=== PATIENT | male | born 1985 | race Caucasian/White ===

== ENCOUNTER 2016-06-06 01:35 | Emergency (ER) | payer BC ==
[2016-06-06] MEDS ORDERED: predniSONE TAB* 20 MG PO ONE (01:48)
[2016-06-06] MEDS ORDERED: Albuterol/Ipratropium NEB.SOL* Albuterol 2.5 MG/Ipratropium 0.5 MG 3 ML INH ONE (01:48)
--- NOTE | 2016-06-06 02:40 | ED ---
Travis Sommer SooYoung, scribed for Diallo Magallanes MD on 06/06/16 at 0149 . Asthma - HPI Summary HPI Summary: A 30 y/o M presents to ED after an asthma attack onset 29. He took Benedryl and used his Albuterol inhaler which provided mild relief. He notes that he had a mild asthma attack approx one month ago, but hasn't had a bad one in years. Pt is a former smoker, quit "7-10 days ago." - History of Current Complaint Chief Complaint: EDAsthma Stated Complaint: DIFF BREATHING Time Seen by Provider: 06/06/16 01:48 Hx Obtained From: Patient Onset/Duration: Still Present Current Severity: Mild Pain Intensity: 2 Pain Scale Used: 0-10 Numeric Alleviating Symptoms: Inhalers/Nebulizers - mild relief - Allergy/Home Medications Allergies/Adverse Reactions: Allergies Allergy/AdvReac Type Severity Reaction Status Date / Time Shellfish Allergy Allergy Severe Anaphylatic Verified 10/17/13 21:30 Shock PMH/Surg Hx/FS Hx/Imm Hx Previously Healthy: Yes Endocrine/Hematology History: Denies: Hx Diabetes, Hx Thyroid Disease Cardiovascular History: Denies: Hx Hypertension Respiratory History: Reports: Hx Asthma Denies: Hx Chronic Obstructive Pulmonary Disease (COPD) GI History: Denies: Hx Ulcer - Surgical History Surgery Procedure, Year, and Place: knee surgery Infectious Disease History: No Infectious Disease History: Denies: Hx Hepatitis, Hx Human Immunodeficiency Virus (HIV), Traveled Outside the [place] in Last 30 Days - Family History Known Family History: Positive: Cardiac Disease, Hypertension, Diabetes - Social History Occupation: Unemployed - OTHER Lives: Alone Alcohol Use: Occasionally Hx Substance Use: No Substance Use Type: Reports: None Hx Tobacco Use: Yes Smoking Status (MU): Former Smoker Review of Systems Negative: Fever Positive: Shortness Of Breath, Other - pos: asthma attack All Other Systems Reviewed And Are Negative: Yes Physical Exam Triage Information Reviewed: Yes Vital Signs On Initial Exam: Initial Vitals Temp Pulse Resp BP Pulse Ox 97 F 90 16 135/84 99 06/06/16 01:40 06/06/16 01:40 06/06/16 01:40 06/06/16 01:40 06/06/16 01:40 Vital Signs Reviewed: Yes Appearance: Positive: Well-Appearing, No Pain Distress Skin: Positive: Warm Head/Face: Positive: Normal Head/Face Inspection Eyes: Positive: MATTHEW ENT: Positive: Hearing grossly normal Neck: Positive: Supple Respiratory/Lung Sounds: Positive: Breath Sounds Present, Wheezes - diffuse bilat with prolonged expiration Cardiovascular: Positive: RRR Abdomen Description: Positive: Nontender, Soft Bowel Sounds: Positive: Present Musculoskeletal: Positive: Strength/ROM Intact Neurological: Positive: Alert, Oriented to Person Place, Time Diagnostics - Vital Signs Vital Signs Temp Pulse Resp BP Pulse Ox 06/06/16 01:40 97 F 90 16 135/84 99 - Laboratory Lab Statement: Any lab studies that have been ordered have been reviewed, and results considered in the medical decision making process. Re-Evaluation - Re-Evaluation First Eval Re-Evaluation Time: 02:41 Change: Improved Asthma Course/Dx - Diagnoses Provider Diagnoses: Asthma Discharge - Discharge Plan Condition: Stable Disposition: HOME Prescriptions: predniSONE TAB* [Deltasone TAB*] 40 mg PO DAILY #8 tab Patient Education Materials: Asthma (ED) Referrals: No Primary Care Phys,NOPCP [Primary Care Provider] - [facility] [place] [facility] [Outside] Additional Instructions: Follow up with your primary care physician as needed. Return to the Emergency Department with new or worsening symptoms. The documentation as recorded by the Travis naranjo SooYoung accurately reflects the service I personally performed and the decisions made by , Diallo Magallanes MD.
[2016-06-06 02:42] VITALS: BP 127/85
== END 2016-06-06 02:47 | disposition home or self-care (01) ==
LOC: ED 01:35
DX: J45.909 Unspecified asthma, uncomplicated (principal)
CPT/HCPCS: 94640; 99282; A9270-GY; J7512

== ENCOUNTER 2018-04-30 14:50 | Emergency (ER) | payer BC, OTHER ==
[2018-04-30 15:15] VITALS: BP 132/92
--- NOTE | 2018-04-30 15:30 | UC ---
Throat Pain/Nasal Dominguez HPI - HPI Summary HPI Summary: 2 weeks of sinus pain and congestion worsening frontal head pain---also would like an albuterol MDI refill - History of Current Complaint Chief Complaint: UCGeneralIllness Stated Complaint: SINUS COMPLAINT Time Seen by Provider: 04/30/18 15:15 Hx Obtained From: Patient Onset/Duration: Gradual Onset, Lasting Weeks - 2 Severity: Moderate Pain Intensity: 0 Cough: None Associated Signs & Symptoms: Positive: Sinus Discomfort, Nasal Discharge - Allergies/Home Medications Allergies/Adverse Reactions: Allergies Allergy/AdvReac Type Severity Reaction Status Date / Time shellfish derived Allergy Anaphylatic Verified 04/30/18 15:07 Shock PMH/Surg Hx/FS Hx/Imm Hx Previously Healthy: No Respiratory History: Asthma - Surgical History Surgical History: Yes Surgery Procedure, Year, and Place: 2005 - knee surgery - Family History Known Family History: Positive: Cardiac Disease, Hypertension, Diabetes - Social History Occupation: Employed Full-time Lives: With Family Alcohol Use: Occasionally Substance Use Type: Marijuana Substance Use Comment - Amount & Last Used: occasional Smoking Status (MU): Light Every Day Tobacco Smoker Type: Cigarettes Amount Used/How Often: social states Review of Systems All Other Systems Reviewed And Are Negative: Yes Constitutional: Positive: Chills, Fatigue Skin: Positive: Negative Eyes: Positive: Negative ENT: Positive: Nasal Discharge, Sinus Congestion, Sinus Pain/Tenderness Respiratory: Positive: Cough Cardiovascular: Positive: Negative Gastrointestinal: Positive: Negative Genitourinary: Positive: Negative Motor: Positive: Negative Neurovascular: Positive: Negative Musculoskeletal: Positive: Negative Neurological: Positive: Negative Psychological: Positive: Negative Is Patient Immunocompromised?: No Physical Exam Triage Information Reviewed: Yes Appearance: Well-Appearing, No Pain Distress, Well-Nourished Vital Signs: Initial Vital Signs Temp 98.9 F 04/30/18 15:09 Pulse 82 04/30/18 15:09 Resp 20 04/30/18 15:09 BP 132/92 04/30/18 15:09 Pulse Ox 98 04/30/18 15:09 Vital Signs Reviewed: Yes Eye Exam: Normal Eyes: Positive: Conjunctiva Clear ENT Exam: Normal ENT: Positive: Normal ENT inspection, Hearing grossly normal, Pharynx normal, Nasal congestion, Nasal drainage, TMs normal, Sinus tenderness, Uvula midline. Negative: Trismus, Muffled voice, Hoarse voice, Dental tenderness Dental Exam: Normal Neck exam: Normal Neck: Positive: Supple, Nontender Respiratory Exam: Normal Respiratory: Positive: Chest non-tender, Lungs clear, Normal breath sounds, No respiratory distress, No accessory muscle use Cardiovascular Exam: Normal Cardiovascular: Positive: RRR, No Murmur, Pulses Normal, Brisk Capillary Refill Musculoskeletal Exam: Normal Musculoskeletal: Positive: Strength Intact, ROM Intact, No Edema Neurological Exam: Normal Neurological: Positive: Alert, Muscle Tone Normal Psychological Exam: Normal Skin Exam: Normal Throat Pain/Nasal Course/Dx - Course Assessment/Plan: Augmentin flonase refilled albuterol increase fluids follow with pcp prn - Differential Dx/Diagnosis Provider Diagnosis: Acute bacterial rhinosinusitis, Bronchospasm Discharge - Sign-Out/Discharge Documenting (check all that apply): Patient Departure All imaging exams completed and their final reports reviewed: No Studies - Discharge Plan Condition: Stable Disposition: HOME Prescriptions: Albuterol HFA INHALER* [Ventolin HFA Inhaler*] 2 puff INH Q6H PRN #1 mdi PRN Reason: cough/wheeze Amoxicillin/Clavulanate TAB* [Augmentin TAB 875*] 875 mg PO BID #20 tab Patient Education Materials: Rhinosinusitis (ED), Bronchospasm (ED) Referrals: [facility] [place] [facility] [Outside] - If Needed - Billing Disposition and Condition Condition: STABLE Disposition: Home
== END 2018-04-30 15:43 | disposition home or self-care (01) ==
LOC: UCEAST 14:50
DX: J01.90 Acute sinusitis, unspecified (principal); J98.01 Acute bronchospasm; Z91.013 Allergy to seafood; Z72.0 Tobacco use
CPT/HCPCS: 99202; G0463

== ENCOUNTER 2023-03-25 15:48 | Observation (INO) ==
[2023-03-25] MEDS ORDERED: NIRMATRELVIR/RITONAVIR 1 PAK eGFR > 60 PO ONE (16:45)
[2023-03-25 17:23] LABS: ABS Lymphocytes 0.7 10^3/uL (1.0-4.8); ABS Monocytes 0.4 10^3/uL (0.0-1.1); ABS Neutrophils 2.2 10^3/uL (1.5-7.6); Eosinophil % 0.4 %; Hematocrit 40.3 % (38-53); Hemoglobin 13.9 g/dL (13.2-16.3); Lymphocyte % 19.7 %; Mean Corpuscular Hemoglobin 30.2 pg (27-33); Mean Corpuscular Hgb Conc 34.6 g/dL (31-36); Mean Corpuscular Volume 87.3 fL (80-97); Mean Platelet Volume 7.7 fL (7.5-11.2); Nucleated Red Blood Cells % 0.1 %/100WBC (0.0-0.8); Platelet Count 173 10^3/uL (150-450); Red Blood Count 4.61 10^6/uL (4.06-5.63); Red Cell Distribution Width 13.6 % (12-17); White Blood Count 3.3 10^3/uL (3.6-10.2)
[2023-03-25 17:43] LABS: Albumin 4.2 g/dL (3.2-5.2); Albumin/Globulin Ratio 1.8 (1-3); C Reactive Protein 57.07 mg/L (<8.01); Calcium 8.4 mg/dL (8.6-10.3); Creatinine, Serum 0.99 mg/dL (0.67-1.17); Globulin 2.4 g/dL (2-4); Potassium 3.4 mmol/L (3.5-5.0); Total Bilirubin 0.3 mg/dL (0.2-1.0); Total Protein 6.6 g/dL (6.4-8.9); eGFR CKD-EPI 100.6 (>60)
[2023-03-25 18:24] LABS: Ferritin 549.7 ng/mL (24-336)
[2023-03-25] MEDS ORDERED: Lactated Ringers 1000 ml BAG 1,000 ML IV ONE (18:47)
[2023-03-25 18:54] LABS: High Sensitivity Troponin 1 Hr 10 pg/mL (<20)
[2023-03-25] MEDS ORDERED: Potassium Chlor 20 meq TAB.ER PO ONE (21:00)
[2023-03-26] MEDS ORDERED: Fluticasone NASAL SPRAY 50MCG 16 gm SPRAY BTL BOTH NARES PRN (01:15)
[2023-03-26 07:03] LABS: ABS Lymphocytes 1.2 10^3/uL (1.0-4.8); ABS Monocytes 0.4 10^3/uL (0.0-1.1); ABS Neutrophils 1.4 10^3/uL (1.5-7.6); ABS Nucleated RBC 0.01 10^3/ul; Eosinophil % 1.4 %; Hematocrit 41.1 % (38-53); Hemoglobin 14.1 g/dL (13.2-16.3); Lymphocyte % 37.7 %; Mean Corpuscular Hemoglobin 29.9 pg (27-33); Mean Corpuscular Hgb Conc 34.2 g/dL (31-36); Mean Corpuscular Volume 87.5 fL (80-97); Mean Platelet Volume 8.4 fL (7.5-11.2); Nucleated Red Blood Cells % 0.3 %/100WBC (0.0-0.8); Platelet Count 167 10^3/uL (150-450); Red Cell Distribution Width 13.6 % (12-17); White Blood Count 3.1 10^3/uL (3.6-10.2)
[2023-03-26 07:19] LABS: Albumin/Globulin Ratio 1.6 (1-3); Creatinine, Serum 0.93 mg/dL (0.67-1.17); Globulin 2.5 g/dL (2-4); Magnesium 2.1 mg/dL (1.9-2.7); Total Bilirubin 0.3 mg/dL (0.2-1.0); Total Protein 6.5 g/dL (6.4-8.9); eGFR CKD-EPI 108.5 (>60)
[2023-03-26 10:14] VITALS: BP 130/85
== END 2023-03-26 14:15 | disposition home or self-care (01) ==
LOC: EDHOLD 15:48 → ED 15:48 → SUATTDRO 18:54 → MED 20:46
PROVIDERS: ADMIT Internal Medicine; ATTEND Hospitalist